=== PATIENT | female | born 1995 | race Two or more races ===

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

== ENCOUNTER 2019-02-09 02:02 | Emergency (ER) | payer MEDICAID, OTHER ==
[~2019-02-09] VITALS: Ht 172.7 cm; Wt 77.1 kg
--- NOTE | 2019-02-09 02:59 | NUR ---
PT BIBSELF C/C "FLU LIKE SYMPTOMS" [id number], +N/+V, +COUGH, OTC MEDS WITH NO RELIEF PT BELIEVES MIGHT BE . PT AOX4. NAD NOTED. RESP EVEN AND UNLABORED. VSS. PT ON MONITOR IN BED 12. URINE COLLECTED AND SENT TO LAB. WILL CONTINUE TO MONITOR.
--- NOTE | 2019-02-09 04:02 | NUR ---
PT MOVED TO BED 16
[2019-02-09 04:25] VITALS: BP 146/87
[2019-02-09 04:44] LABS: BASOPHILS % (AUTO) 0.2 % (0.0-2.0); EOSINOPHILS % (AUTO) 0.7 % (0.0-6.0); HEMATOCRIT 42 % (33-45); HEMOGLOBIN 13.9 g/dL (11.5-14.8); LYMPHOCYTES # (AUTO) 1.7 /CMM (0.8-4.8); LYMPHOCYTES % (AUTO) 13.3 % (20.0-44.0); MEAN CORPUSCULAR HGB CONC 33 g/dl (31.0-36.0); MEAN CORPUSCULAR VOLUME 88 fL (82-100); MONOCYTES # (AUTO) 0.8 /CMM (0.1-1.30); MONOCYTES % (AUTO) 6.6 % (2.0-12.0); NEUTROPHILS % (AUTO) 79.2 % (43.0-81.0); PLATELET COUNT (AUTO) 196 /CMM (150-450); RED BLOOD CELL COUNT(AUTO) 4.76 MIL/uL (4.0-5.2); WHITE BLOOD COUNT (AUTO) 12.6 K/uL (4.3-11.0)
[2019-02-09 04:51] LABS: CREATININE 0.6 mg/dL (0.6-1.3); POTASSIUM 3.1 mmol/L (3.5-5.1)
--- NOTE | 2019-02-09 05:20 | NUR ---
us at bedside
--- NOTE | 2019-02-09 06:08 | NUR ---
PT WAS ADVISED TO MAKE A FOLLOW UP APPOINTMENT WITH OB TODAY
--- NOTE | 2019-02-09 06:09 | NUR ---
Patient discharged to home in stable condition. Written and verbal after care instructions given. Patient verbalizes understanding of instruction.
== END 2019-02-09 06:12 | disposition home or self-care (01) ==
LOC: ER 02:07
DX: O21.8 Other vomiting complicating pregnancy (principal); Z3A.01 Less than 8 weeks gestation of pregnancy
CPT/HCPCS: 36415; 76856-TC; 80048-TC; 84702-TC; 84703-TC; 85025-TC